=== PATIENT | male | born 1970 | race Caucasian/White ===

== ENCOUNTER 2016-12-20 00:44 | Inpatient (IN) | payer OTHER ==
[~2016-12-20] VITALS: Ht 168.9 cm; Wt 77.9 kg
[2016-12-20] VITALS (9 sets, daily range): BP systolic 108–149; BP diastolic 68–88; PULSE 95–114; TEMP 36.7–37.4; O2SAT 92–98; Ht 168.9 cm; Wt 77.9 kg
[~2016-12-20 00:44] MED LIST: ATOR-54 PO; CALC500C3 PO; CARB100C2 PO; CARB200T3 PO; DIPH25CA37 PO; FOLI1TAB7 PO; LEVO175T PO; LISI-461 PO; MESA0.37 PO; MRC50 PO; MULT-513 PO; OMEG10007 PO; PANT1TAB48 PO; QUET200T2 PO; SERT1TAB68 PO; SRQ/200 PO; WLLSR100 PO
[2016-12-20] MEDS ORDERED: ONDANSETRON INJ 2 MG/ML 2 ML VIAL IV STA (01:00)
[2016-12-20] MEDS ORDERED: HYDROmorphone INJ 1 MG/ML SYR IV STA (01:00)
[2016-12-20] MEDS ORDERED: SODIUM CHLORIDE 0.9% 1000ML 1,000 ML IV STA (01:00)
--- NOTE | 2016-12-20 01:30 | EMERGENCY ROOM VISIT NOTE ---
History Report prepared by Joy: Asmita Mcelroy Under the Supervision of: Dr. Lana Buchanan M.D. First contact with patient: 01:00 Chief Complaint: KIDNEY STONE Stated Complaint: SUDDEN ONSET KIDNEY PAIN W N/V History of Present Illness The patient is a 46 year old male who presents to the Emergency Room via to be evaluated for worsening right sided flank pain with sudden onset 1.5 hours ago. He rates his pain as a 9/10. The patient has been vomiting. He denies that the pain radiates down to his groin, blood in his urine. Source of History: patient Onset: 1.5 hours ago Position: other (right flank pain) Symptom Intensity: 9/10 Timing: worsening Associated Symptoms: + vomiting Note: He denies that the pain radiates down to his groin, blood in his urine. Review of Systems See HPI for pertinent positives & negatives. A total of 10 systems reviewed and were otherwise negative. Past Medical & Surgical Medical Problems: (1) Crohn's disease (2) Hypertension (3) Hypothyroidism (4) Kidney stones (5) Major depression (6) Sepsis Surgical Problems: (1) Hernia repair (2) Vasectomy Family History No significant family history Social History Smoking Status: Former Smoker Alcohol Use: none Drug Use: none Marital Status: Housing Status: lives alone Occupation Status: employed Current/Historical Medications Scheduled Atorvastatin (Lipitor), 20 MG PO DAILY Bupropion HCl (Bupropion HCl Sr), 200 MG PO QAM Calcium Carbonate (Tums), 750 MG PO AMPM Carbamazepine (Tegretol), 200 MG PO QAM Folic Acid (Folvite), 1 MG PO DAILY Glucosamine Sulfate (Glucosamine), 1,000 MG PO BID Levofloxacin (Levaquin), 500 MG PO DAILY Levothyroxine Sodium (Synthroid), 175 MCG PO DAILY Lisinopril (Zestril), 10 MG PO DAILY Mercaptopurine (Mercaptopurine), 50 MG PO DAILY Mesalamine (Apriso), 0.75 GM PO BID Multivitamins/Minerals (Mvi With Minerals), 0.5 TAB PO BID Pantoprazole (Protonix), 40 MG PO DAILY Quetiapine Fumarate (Seroquel), 200 MG PO HS Quetiapine Fumarate (Quetiapine Fumarate), 400 MG PO HS Sertraline Hcl (Zoloft), 100 MG PO DAILY Scheduled PRN Cyclobenzaprine Hcl (Flexeril), 10 MG PO TID PRN for SPASMS Dicyclomine Hcl (Bentyl), 10 MG PO TID PRN for UNDECIDED Meloxicam (Mobic), 15 MG PO DAILY PRN for Pain Ondasetron Odt (Zofran Odt), 4 MG SL Q6H PRN for Nausea or Vomiting Prochlorperazine Maleate (Compazine), 10 MG PO Q6H PRN for Nausea or Vomiting Allergies Coded Allergies: No Known Allergies (Verified , 08/21/15) Physical Exam Vital Signs Date Time Temp Pulse Resp B/P Pulse Ox O2 Delivery O2 Flow Rate FiO2 12/20/16 04:36 37.6 118 16 134/75 94 Room Air 12/20/16 03:50 38.6 126 24 129/68 92 Room Air 12/20/16 02:20 39.2 121 18 163/97 92 Room Air 12/20/16 01:59 120 22 156/96 94 Room Air 12/20/16 01:45 125 12/20/16 00:55 37.9 122 24 106/65 95 Physical Exam Vital signs reviewed. General: Well-appearing male, in significant discomfort. HEENT: No scleral icterus, PERRLA, neck supple. Atraumatic. Cardiovascular: Regular rate and rhythm, no extra sounds. Pulmonary: Clear to auscultation bilaterally, normal work of breathing. Abdomen: Soft, nondistended, positive bowel sounds. Musculoskeletal: Atraumatic, no peripheral edema. Mild right CVA tenderness. Neurologic: Patient awake alert and oriented x 3 Skin: Warm, dry, no rash Medical Decision & Procedures ER Provider Diagnostic Interpretation: CT results as stated below per my review and radiologist interpretation. X-ray results as stated below per interpretation by me. CT Abdomen and Pelvis: Compared to 05/01/16 Interval development of lower lobe pneumonia, more pronounced on the right. No urolithiasis/ hydronephrosis. Hepatosplenomegaly. Normal appendix. No bowel obstruction or perforation. Radiologist: Isaiah Medrano MD. Chest X-Ray: Right lower lung field infiltrate, no failure, no pneumothorax. Laboratory Results Test 12/20/16 01:30 12/20/16 02:16 12/20/16 02:30 12/20/16 02:52 Activated Partial Thromboplast Time 27.0 SECONDS (21.0-31.0) Partial Thromboplastin Ratio 1.0 Magnesium Level 2.0 mg/dl (1.8-2.4) Total Bilirubin 0.2 mg/dl (0.2-1) Direct Bilirubin < 0.1 mg/dl (0-0.2) Aspartate Amino Transf (AST/SGOT) 21 U/L (15-37) Alanine Aminotransferase (ALT/SGPT) 32 U/L (12-78) Alkaline Phosphatase 111 U/L (45-117) Total Protein 8.4 gm/dl (6.4-8.2) Albumin 4.1 gm/dl (3.4-5.0) Lipase 182 U/L (73-393) Thyroid Stimulating Hormone (TSH) 1.800 uIu/ml (0.300-4.500) Urine Color YELLOW Urine Appearance CLEAR (CLEAR) Urine pH 7.0 (4.5-7.5) Urine Specific [place] 1.022 (1.000-1.030) Urine Protein NEG (NEG) Urine Glucose (UA) NEG (NEG) Urine Ketones NEG (NEG) Urine Occult Blood NEG (NEG) Urine Nitrite NEG (NEG) Urine Bilirubin NEG (NEG) Urine Urobilinogen NEG (NEG) Urine Leukocyte Esterase NEG (NEG) Influenza Type A (RT-PCR) Neg for Influ A (NEG) Influenza Type A Antigen Neg for Influ A (NEG) Influenza Type B Antigen Neg for Influ B (NEG) Influenza Type B (RT-PCR) Neg for Influ B (NEG) Bedside Lactic Acid Venous 1.71 mmol/L (0.90-1.70) Laboratory results per my review. Medications Administered Medications (Trade) Dose Ordered Sig/Alia Route Start Time Stop Time Status Last Admin Dose Admin Hydromorphone HCl (Dilaudid Inj) 1 mg NOW STAT IV 12/20/16 01:00 12/20/16 01:02 DC 12/20/16 01:26 1 MG Ondansetron HCl 4 mg 4 mg NOW STAT IV 12/20/16 01:00 12/20/16 01:02 DC 12/20/16 01:26 4 MG Sodium Chloride (Nss 1000ml) 1,000 ml @ 999 mls/hr Q1H1M STAT IV 12/20/16 01:00 12/20/16 02:00 DC 12/20/16 01:26 999 MLS/HR Levofloxacin (Levaquin / D5W) 750 mg NOW STAT IV 12/20/16 02:28 12/20/16 02:29 DC 12/20/16 03:00 750 MG Acetaminophen (Tylenol Tab) 1,000 mg NOW STAT PO 12/20/16 02:28 12/20/16 02:29 DC 12/20/16 02:34 1,000 MG Ketorolac Tromethamine 30 mg 30 mg NOW STAT IV 12/20/16 03:29 12/20/16 03:30 DC 12/20/16 03:49 30 MG Sodium Chloride (Nss 1000ml) 1,000 ml @ 500 mls/hr Q2H STAT IV 12/20/16 04:31 12/20/16 06:30 DC 12/20/16 05:26 500 MLS/HR ED Course 0114: Past medical records reviewed. The patient was evaluated in room B9. A complete history and physical examination was performed. 0100: Sodium Chloride 1000 ml @ 999 mls/hr IV, Zofran 4 mg IV, Dilaudid 1 mg IV 0228: Tylenol Tab 1000 mg PO, Levofloxacin 750 mg IV 0327: I updated the patient on his imaging results. On reevaluation, the patient is still febrile and tachycardic. 0339: Toradol 30 mg IV 0429: I discussed the case with Dr. Candelaria ([facility]); he will further evaluate the patient. 0454: I reevaluated the patient; he is doing well but remains tachycardic. Dr. Candelaria is in the room with the patient. Medical Decision The patient is a 46 year old male who presents to the ED with complaints of right flank pain. Differentials include: Differential diagnosis: Etiologies such as renal colic, appendicitis, diverticulitis, mesenteric ischemia, aortic pathology, infections, inflammatory bowel disease, PUD, biliary pathology, UTI, as well as others were entertained. This pt was evaluated and appeared to be in significant discomfort. IV access was obtained and lab work was drawn. Pt was placed on the director of cardiac rehabilitation. Pt is found to have a leukocytosis, tachycardia and fever. CT sbd/pelvis reveals no evidence of ureteral stone. There are bilateral lower lung field infiltrates. Blood cultures were drawn. Pt was hydrated with NSS, IV dilaudid and zofran. He was given IV levaquin 750 mg, oral tylenol and IV toradol. Due to abnormal VS, pt was discussed with the hospitalist service for further management. Pt is aware of the plan and agrees. Consults Time Called: [phone] Consulting Physician: Dr. Candelaria ([facility]) Returned Call: [phone] I discussed the case with Dr. Candelaria ([facility]); he will further evaluate the patient. Impression Primary Impression: SIRS (systemic inflammatory response syndrome) Additional Impression: Pneumonia Scribe Attestation The scribe's documentation has been prepared under my direction and personally reviewed by me in its entirety. I confirm that the note above accurately reflects all work, treatment, procedures, and medical decision making performed by me. Departure Information Dispostion Being Evaluated By Hospitalist Prescriptions Levofloxacin (Levaquin) 500 Mg Tab 500 MG PO DAILY for 7 Days, #7 Prov: Louie Alvarado MD 12/22/16 Referrals Dennis Delgado III, M.D. (PCP) Patient Instructions My [facility] Problem Qualifiers Additional Impression: Pneumonia Pneumonia type: due to unspecified organism Laterality: bilateral Lung location: lower lobe of lung Qualified Codes: J18.9 - Pneumonia, unspecified organism
[2016-12-20 01:49] LABS: BASO % 0.2 %; BASO ABS # 0.02 K/uL (0-0.2); COMPLETE YES; EOS % 0.6 %; HEMATOCRIT 40.9 % (42-52); IG% 0.6 %; LYMPH % 6.9 %; LYMPH ABS # 0.84 K/uL (1.2-3.4); MEAN CELL VOLUME 94.2 fL (80-100); MEAN CORPUSCULAR HEMOGLOBIN 31.3 pg (25-34); MEAN CORPUSCULAR HGB CONC 33.3 g/dl (32-36); MEAN PLATELET VOLUME 8.8 fL (7.4-10.4); NEUT % 86.7 %; PLATELET COUNT 252 K/uL (130-400); RED BLOOD COUNT 4.34 M/uL (4.7-6.1); WHITE BLOOD COUNT 12.14 K/uL (4.8-10.8)
[2016-12-20] MEDS ORDERED: MELO15TA4 PO (02:00)
[2016-12-20] MEDS ORDERED: PROC1TAB5 PO (02:02)
[2016-12-20] MEDS ORDERED: DICY10CA55 PO (02:03)
[2016-12-20] MEDS ORDERED: CYCL10TA6 PO (02:04)
[2016-12-20] MEDS ORDERED: GLUC10007 PO (02:05)
[2016-12-20] MEDS ORDERED: ONDA4TAB10 SL (02:07)
[2016-12-20 02:10] LABS: ALT/SGPT 32 U/L (12-78); AST/SGOT 21 U/L (15-37); BLOOD UREA NITROGEN 11 mg/dl (7-18); BUN/CREATININE RATIO 11.3 (10-20); CALCIUM 8.8 mg/dl (8.5-10.1); CARBON DIOXIDE 34 mmol/L (21-32); CHLORIDE 101 mmol/L (98-107); GLUCOSE 112 mg/dl (70-99); POTASSIUM 3.9 mmol/L (3.5-5.1); SODIUM 141 mmol/L (136-145)
[2016-12-20 02:13] LABS: ALKALINE PHOSPHATASE 111 U/L (45-117)
[2016-12-20] MEDS ORDERED: LEVAQUIN 750MG / 150ML D5W IV STA (02:28)
[2016-12-20] MEDS ORDERED: ACETAMINOPHEN 500 MG TAB PO STA (02:28)
[2016-12-20 02:42] LABS: URINE APPEARANCE CLEAR (CLEAR); URINE BILIRUBIN NEG (NEG); URINE COLOR YELLOW; URINE NITRITE NEG (NEG); URINE SPECIFIC GRAVITY 1.022 (1.000-1.030); UROBILINOGEN NEG (NEG); ZZUR CULT IF INDIC CLEAN CATCH NO
[2016-12-20 02:47] LABS: MANUAL MICROSCOPIC REQUIRED? NO; REVIEW REQ? NO
[2016-12-20] MEDS ORDERED: KETOROLAC TROMETHAMINE 30 MG/ML VIAL IV STA (03:29)
[2016-12-20] MEDS: SODIUM CHLORIDE 0.9% 1000ML 1,000 ML IV STA ×2 (04:31→05:26)
[2016-12-20 05:10] LABS: INFLUENZA A PCR Neg for Influ A (NEG); INFLUENZA B PCR Neg for Influ B (NEG)
[2016-12-20] MEDS ORDERED: KETOROLAC TROMETHAMINE 30 MG/ML VIAL IV PRN (05:15)
[2016-12-20] MEDS ORDERED: LORAZEPAM 2 MG/ML 1 ML VIAL IV PRN (05:15)
[2016-12-20] MEDS ORDERED: MoRPHine SULFATE 4 MG/ML 1 ML CARP\\VIAL IV PRN (05:15)
[2016-12-20] MEDS ORDERED: ONDANSETRON INJ 2 MG/ML 2 ML VIAL IV PRN (05:15)
[2016-12-20] MEDS ORDERED: ACETAMINOPHEN 325 MG TAB PO PRN (05:15)
[2016-12-20] MEDS ORDERED: PROMETHAZINE HCL INJ 12.5 MG in SODIUM CHLORIDE 0.9% 50ML 50 ML IV PRN (05:15)
[2016-12-20] MEDS ORDERED: NITROGLYCERIN 0.4 MG SL PER TAB CHARGE SL PRN (05:15)
[2016-12-20] MEDS ORDERED: LEVOFLOXACIN CONSULT ACTIVE PRN (06:00)
[2016-12-20] MEDS ORDERED: SRQ400 PO (06:05)
--- NOTE | 2016-12-20 06:09 | DIAGNOSTIC IMAGING REPORT ---
ABDOMEN AND PELVIS CT WITHOUT CONTRAST CT DOSE: 661.40 mGy.cm HISTORY: Pain right flank pain, stone TECHNIQUE: Multiaxial CT images of the abdomen and pelvis were performed without contrast. COMPARISON STUDY: 05/01/2016 FINDINGS: Right lower lobe infiltrate. Minimal dependent atelectasis left base. Moderate hepatosplenomegaly. Kidneys negative for calcification or hydronephrosis. Bowel pattern is nonobstructive. Scattered colonic diverticuli. No evidence for diverticulitis. Bladder is midline. No free fluid within the pelvic cul-de-sac. IMPRESSION: Right lower lobe infiltrate. No acute process of the abdomen or pelvis. Electronically signed by: Brayden Rodriguez M.D. 12/20/2016 6:08 AM Dictated Date/Time: 12/20/2016 6:05 AM
[2016-12-20] MEDS ORDERED: LEVALBUTEROL/IPRATROPIUM NEB INH PRN (06:15)
--- NOTE | 2016-12-20 06:28 | DIAGNOSTIC IMAGING REPORT ---
CHEST ONE VIEW PORTABLE CLINICAL HISTORY: PNA dyspnea COMPARISON STUDY: 05/14/2016 FINDINGS: Small bibasilar parenchymal infiltrates. Mid and upper lungs are clear. Diaphragms are smooth. IMPRESSION: Small bibasilar parenchymal infiltrates. Electronically signed by: Brayden Rodriguez M.D. 12/20/2016 6:26 AM Dictated Date/Time: 12/20/2016 6:26 AM
[2016-12-20] MEDS ORDERED: IPRATROPIUM BROMIDE NEB SOLN 0.02% 2.5 ML VIAL INH PRN (06:45)
[2016-12-20] MEDS ORDERED: LEVALBUTEROL 1.25MG/0.5ML NEB INH PRN (06:45)
[2016-12-20] MEDS ORDERED: SODIUM CHLORIDE 0.45% 1000ML 1,000 ML IV ONE (07:00)
--- NOTE | 2016-12-20 07:50 | HISTORY & PHYSICAL EXAMINATION ---
DATE OF ADMISSION: 12/20/2016 PATIENT'S PRIMARY CARE DOCTOR: Dr. Delgado. HX obtained from px and records. HISTORY OF PRESENT ILLNESS: Medical history significant for hypertension, IBD on Mercaptopurine, past tobacco abuse, ELIE as per records, hypothyroidism, mood disorder. Recent confinement at the [facility] last 2010 for major depression. A few days history of cough symptoms, junky; pleuritic R flank pain, some fever, chills. Sick contacts. Denies aspiration. At the Emergency Room, CAT scan showed interval development of lower lobe pneumonia, more pronounced on the right, hepatosplenomegaly. Patient received Levaquin in the ER for sepsis. MEDICAL HISTORY: seasonal flu vaccine 2016. No previous pneumococcal vaccines in the past. SURGERIES: Inguinal hernia, dental surgery, nevi removal, vasectomy. HOME MEDICATIONS: Folvite, glucosamine, Synthroid, Zestril, Mobic, mesalamine, multivitamin, Zofran, Protonix, Compazine, Seroquel, and Zoloft. ALLERGIES: No known drug allergies. FAMILY HISTORY: Hypertension. PERSONAL AND SOCIAL HISTORY: Nonsmoker, past tobacco abuse. No chronic intake of alcoholic beverages. 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. REVIEW OF SYSTEMS: As per HPI. All other ROS negative. PHYSICAL EXAMINATION: VITAL SIGNS: Blood pressure was noted to be 106/65, pulse rate 120, RR 24, temperature 38, sats 98 on room air. GENERAL: Noted to be uncomfortable, no respiratory distress, frequent blinking. Looks younger for stated age. HEENT: [place] palpebral conjunctivae. Dry mucosa. NECK: No JVD. Supple. CHEST: Clear. LUNGS: Clear to auscultation. HEART: Tachycardic. ABDOMEN: Soft BACK :tenderness in the right flank. EXTREMITIES: No edema, no tenderness. NEUROLOGIC: No gross focality. IMAGING DATA: CT abdomen and pelvis, as above. Chest x-ray showed bibasilar pneumonia LABORATORY DATA: WBC 12, H 13.6 platelets 252 Troponin normal. EKG pending. ASSESSMENT: 1. Sepsis secondary to community acquired pneumonia bibasilar pneumonia with pleuritic involvement. immunocompromised px hx IBD on Mercaptopurine 2. Hypertension, stable. 3. Mood disorder, stable on medications. 4. Past tobacco abuse. PLAN: PCU. Cultures. Levaquin IVF Pneumococcal vaccine prior to discharge. Analgesia. hold Mercaptopurine for now DVT prophylaxis, Lovenox subQ. Full code. MTDD
[2016-12-20] MEDS: APRISO~ORDER AWAITING ACTION SCH ×2 (08:00→16:00)
--- NOTE | 2016-12-20 08:31 | Progress Note ---
Internal Med Progress Note Date of Service: Dec 20, 2016. Provider Documentation: SUBJECTIVE: Patient is seen and examined at bedside. States having right sided pleuritic pain which is worse with coughing. Reports cough with brownish expectoration. Denies any SOB, wheezing, abd pain. OBJECTIVE: Vital Signs-as noted below Physical Exam: General Appearance:Moderately built and nourished, no apparent distress Head: normocephalic, Atraumatic Eyes: normal inspection, EOMI, PERRLA Neck: supple, no JVD, Trachea midline Respiratory/Chest: Normal breath sounds, CTA, No accessory muscle use Cardiovascular: S1, S2, Tachycardia, No murmur Abdomen/GI:Soft, Non tender, Bowel sounds present Extremities/Musculoskelatal:normal inspection, no edema Neurologic/Psych:AAOX3, grossly no focal neurological deficits, +depression, mood disorder Skin: normal color, warm Lab data as noted below. 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 H/O CROHN'S DISEASE Stable Continue home meds Patient to bring meds from home H/O SLEEP APNEA Stable HYPOTHYROIDISM TSH:wnl Continue levothyroxine DVT PX Lovenox SQ CODE STATUS: full code DISPOSITION: Continue to monitor in Tele Vital Signs: Date Time Temp Pulse Resp B/P Pulse Ox O2 Delivery O2 Flow Rate FiO2 12/20/16 07:39 37.1 102 16 108/69 93 Room Air 12/20/16 05:38 37.0 114 16 132/84 92 Room Air 12/20/16 05:20 113 24 94 12/20/16 05:04 115 12/20/16 04:36 37.6 118 16 134/75 94 Room Air 12/20/16 03:50 38.6 126 24 129/68 92 Room Air 12/20/16 02:20 39.2 121 18 163/97 92 Room Air 12/20/16 01:59 120 22 156/96 94 Room Air 12/20/16 01:45 125 12/20/16 00:55 37.9 122 24 106/65 95 Lab Results: Results Past 24 Hours Test 12/20/16 01:30 12/20/16 02:16 12/20/16 02:30 12/20/16 02:52 Range/Units White Blood Count 12.14 4.8-10.8 K/uL Red Blood Count 4.34 4.7-6.1 M/uL Hemoglobin 13.6 14.0-18.0 g/dL Hematocrit 40.9 42-52 % Mean Corpuscular Volume 94.2 80-100 fL Mean Corpuscular Hemoglobin 31.3 25-34 pg Mean Corpuscular Hemoglobin Concent 33.3 32-36 g/dl Platelet Count 252 130-400 K/uL Mean Platelet Volume 8.8 7.4-10.4 fL Neutrophils (%) (Auto) 86.7 % Lymphocytes (%) (Auto) 6.9 % Monocytes (%) (Auto) 5.0 % Eosinophils (%) (Auto) 0.6 % Basophils (%) (Auto) 0.2 % Neutrophils # (Auto) 10.53 1.4-6.5 K/uL Lymphocytes # (Auto) 0.84 1.2-3.4 K/uL Monocytes # (Auto) 0.61 0.11-0.59 K/uL Eosinophils # (Auto) 0.07 0-0.5 K/uL Basophils # (Auto) 0.02 0-0.2 K/uL RDW Standard Deviation 54.8 36.4-46.3 fL RDW Coefficient of Variation 15.8 11.5-14.5 % Immature Granulocyte % (Auto) 0.6 % Immature Granulocyte # (Auto) 0.07 0.00-0.02 K/uL Activated Partial Thromboplast Time 27.0 21.0-31.0 SECONDS Partial Thromboplastin Ratio 1.0 Sodium Level 141 136-145 mmol/L Potassium Level 3.9 3.5-5.1 mmol/L Chloride Level 101 98-107 mmol/L Carbon Dioxide Level 34 21-32 mmol/L Anion Gap 6.0 3-11 mmol/L Blood Urea Nitrogen 11 7-18 mg/dl Creatinine 1.00 0.60-1.40 mg/dl Est Creatinine Clear Calc Drug Dose 83.0 ml/min Estimated GFR () 102.7 Estimated GFR (Non- 88.6 BUN/Creatinine Ratio 11.3 10-20 Random Glucose 112 70-99 mg/dl Calcium Level 8.8 8.5-10.1 mg/dl Magnesium Level 2.0 1.8-2.4 mg/dl Total Bilirubin 0.2 0.2-1 mg/dl Direct Bilirubin < 0.1 0-0.2 mg/dl Aspartate Amino Transf (AST/SGOT) 21 15-37 U/L Alanine Aminotransferase (ALT/SGPT) 32 12-78 U/L Alkaline Phosphatase 111 45-117 U/L Troponin I < 0.015 0-0.045 ng/ml Total Protein 8.4 6.4-8.2 gm/dl Albumin 4.1 3.4-5.0 gm/dl Lipase 182 73-393 U/L Thyroid Stimulating Hormone (TSH) 1.800 0.300-4.500 uIu/ml Urine Color YELLOW Urine Appearance CLEAR CLEAR Urine pH 7.0 4.5-7.5 Urine Specific [place] 1.022 1.000-1.030 Urine Protein NEG NEG Urine Glucose (UA) NEG NEG Urine Ketones NEG NEG Urine Occult Blood NEG NEG Urine Nitrite NEG NEG Urine Bilirubin NEG NEG Urine Urobilinogen NEG NEG Urine Leukocyte Esterase NEG NEG Influenza Type A (RT-PCR) Neg for Influ A NEG Influenza Type A Antigen Neg for Influ A NEG Influenza Type B Antigen Neg for Influ B NEG Influenza Type B (RT-PCR) Neg for Influ B NEG Bedside Lactic Acid Venous 1.71 0.90-1.70 mmol/L Test 12/20/16 05:58 Range/Units Lactic Acid Level 0.7 0.4-2.0 mmol/L Carbamazepine (Tegretol) Level 4.2 4-12 mcg/ml Microbiology Results 12/20/16 Blood Culture, Received Pending 12/20/16 Blood Culture, Received Pending
[2016-12-20] MEDS: ENOXAPARIN 40 MG/0.4 ML SYR SC SCH (08:56)
[2016-12-20] MEDS: ATORVASTATIN 20 MG TAB PO SCH (08:57)
[2016-12-20] MEDS: PANTOprazole SOD 40 MG TAB PO SCH (08:58)
[2016-12-20] MEDS: CEROVITE ADV FORMULA TAB PO SCH ×2 (08:58→20:49)
[2016-12-20] MEDS ORDERED: PNEUMOCOCCAL ADMINISTRATION CHARGE ONE (09:00)
[2016-12-20] MEDS ORDERED: PNEUMOCOCCAL POLYSACCHARIDES 25 MCG/0.5 ML VIAL/SYR IM. ONE (09:00)
[2016-12-20] MEDS: LEVOTHYROXINE 175 MCG TAB PO SCH (09:00)
[2016-12-20] MEDS: BuPROPion SR 100 MG TABCR PO SCH (09:01)
[2016-12-20] MEDS: CARBAMAZEPINE 200 MG TAB PO SCH (09:01)
[2016-12-20] MEDS: LISINOPRIL 10 MG TAB PO SCH (09:01)
[2016-12-20] MEDS: SERTRALINE HCL 100 MG TAB PO SCH (09:02)
[2016-12-20] MEDS: MERCAPTOPURINE 50 MG TAB PO SCH (10:21)
[2016-12-20] MEDS: CYCLOBENZAPRINE HCL 10 MG TAB PO PRN ×2 (10:22→19:58)
[2016-12-20] MEDS: IBUPROFEN 200 MG TAB PO PRN ×2 (10:23→19:59)
[2016-12-20] MEDS: MESALAMINE 0.375 GM PO SCH (20:48)
[2016-12-20] MEDS: LEVOFLOXACIN 750 MG TAB PO SCH (20:49)
[2016-12-20] MEDS: QUETIAPINE FUMARATE 300 MG TAB PO SCH (20:49)
[2016-12-20] MEDS ORDERED: QUETIAPINE FUMARATE 200 MG TAB PO SCH (21:00)
[2016-12-21 03:46] VITALS: BP 119/66; PULSE 80; TEMP 36.6; O2SAT 97
[2016-12-21 05:41] LABS: HEMATOCRIT 36.1 % (42-52); MEAN CORPUSCULAR HEMOGLOBIN 30.8 pg (25-34); MEAN CORPUSCULAR HGB CONC 32.4 g/dl (32-36); MEAN PLATELET VOLUME 8.8 fL (7.4-10.4); PLATELET COUNT 209 K/uL (130-400); WHITE BLOOD COUNT 10.25 K/uL (4.8-10.8)
[2016-12-21 06:11] LABS: BASO % 0.1 %; BASO ABS # 0.01 K/uL (0-0.2); COMPLETE YES; EOS % 1.1 %; IG% 0.3 %; LYMPH % 11.6 %; LYMPH ABS # 1.19 K/uL (1.2-3.4); MONO % 8.3 %; NEUT % 78.6 %
[2016-12-21 06:24] LABS: CALCIUM 8.6 mg/dl (8.5-10.1); CREATININE 0.68 mg/dl (0.60-1.40); POTASSIUM 3.6 mmol/L (3.5-5.1)
[2016-12-21] MEDS: ENOXAPARIN 40 MG/0.4 ML SYR SC SCH ×2 (06:28→20:03)
[2016-12-21 07:21] VITALS: BP 105/61; PULSE 82; TEMP 36.7; O2SAT 97
[2016-12-21] MEDS: CEROVITE ADV FORMULA TAB PO SCH ×2 (08:05→20:03)
[2016-12-21] MEDS: LISINOPRIL 10 MG TAB PO SCH (08:05)
[2016-12-21] MEDS: CARBAMAZEPINE 200 MG TAB PO SCH (08:06)
[2016-12-21] MEDS: PANTOprazole SOD 40 MG TAB PO SCH (08:06)
[2016-12-21] MEDS: SERTRALINE HCL 100 MG TAB PO SCH (08:06)
[2016-12-21] MEDS: BuPROPion SR 100 MG TABCR PO SCH (08:06)
[2016-12-21] MEDS: MESALAMINE 0.375 GM PO SCH ×2 (08:07→20:02)
[2016-12-21] MEDS: ATORVASTATIN 20 MG TAB PO SCH (08:07)
[2016-12-21] MEDS: MERCAPTOPURINE 50 MG TAB PO SCH (08:08)
[2016-12-21] MEDS: LEVOTHYROXINE 175 MCG TAB PO SCH (10:04)
[2016-12-21 11:21] VITALS: BP 114/66; PULSE 92; TEMP 36.8; O2SAT 96
--- NOTE | 2016-12-21 12:49 | Progress Note ---
Internal Med Progress Note Date of Service: Dec 21, 2016. Provider Documentation: SUBJECTIVE: Patient is seen and examined at bedside. Cough with brownish expectoration is improved. Had transient right sided pleuritic pain this morning. Denies any SOB , wheezing, abd pain. Afebrile today OBJECTIVE: Vital Signs-as noted below Physical Exam: General Appearance:Moderately built and nourished, no apparent distress Head: normocephalic, Atraumatic Eyes: normal inspection, EOMI, PERRLA Neck: supple, no JVD, Trachea midline Respiratory/Chest: Normal breath sounds, CTA, No accessory muscle use Cardiovascular: S1, S2, Tachycardia, No murmur Abdomen/GI:Soft, Non tender, Bowel sounds present Extremities/Musculoskelatal:normal inspection, no edema Neurologic/Psych:AAOX3, grossly no focal neurological deficits, +depression, mood disorder Skin: normal color, warm Lab data as noted below. 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 H/O CROHN'S DISEASE Stable Continue home meds Patient to bring meds from home H/O SLEEP APNEA Stable HYPOTHYROIDISM TSH:wnl Continue levothyroxine DVT PX Lovenox SQ CODE STATUS: full code DISPOSITION: Transfer to med/surg Vital Signs: Date Time Temp Pulse Resp B/P Pulse Ox O2 Delivery O2 Flow Rate FiO2 12/21/16 11:21 36.8 92 18 114/66 96 Room Air 12/21/16 08:00 Room Air 12/21/16 07:21 36.7 82 18 105/61 97 Room Air 12/21/16 04:00 Room Air 12/21/16 03:46 36.6 80 20 119/66 97 Room Air 12/20/16 23:59 Room Air 12/20/16 23:40 37.3 96 17 123/68 95 Room Air 12/20/16 20:25 36.8 95 20 149/88 98 Room Air 12/20/16 20:00 Room Air 12/20/16 16:15 93 Room Air 12/20/16 16:13 37.4 98 18 130/72 93 Room Air 12/20/16 15:50 37.0 98 20 121/76 93 Room Air Lab Results: Results Past 24 Hours Test 12/20/16 16:20 12/20/16 17:40 12/20/16 22:20 12/20/16 22:22 Range/Units Creatine Kinase MB Ratio 0-3.0 Creatine Kinase MB 0.6 0.6 0.5-3.6 ng/ml Troponin I < 0.015 < 0.015 0-0.045 ng/ml Test 12/21/16 05:10 Range/Units White Blood Count 10.25 4.8-10.8 K/uL Red Blood Count 3.80 4.7-6.1 M/uL Hemoglobin 11.7 14.0-18.0 g/dL Hematocrit 36.1 42-52 % Mean Corpuscular Volume 95.0 80-100 fL Mean Corpuscular Hemoglobin 30.8 25-34 pg Mean Corpuscular Hemoglobin Concent 32.4 32-36 g/dl Platelet Count 209 130-400 K/uL Mean Platelet Volume 8.8 7.4-10.4 fL Neutrophils (%) (Auto) 78.6 % Lymphocytes (%) (Auto) 11.6 % Monocytes (%) (Auto) 8.3 % Eosinophils (%) (Auto) 1.1 % Basophils (%) (Auto) 0.1 % Neutrophils # (Auto) 8.06 1.4-6.5 K/uL Lymphocytes # (Auto) 1.19 1.2-3.4 K/uL Monocytes # (Auto) 0.85 0.11-0.59 K/uL Eosinophils # (Auto) 0.11 0-0.5 K/uL Basophils # (Auto) 0.01 0-0.2 K/uL RDW Standard Deviation 56.9 36.4-46.3 fL RDW Coefficient of Variation 16.3 11.5-14.5 % Immature Granulocyte % (Auto) 0.3 % Immature Granulocyte # (Auto) 0.03 0.00-0.02 K/uL Red Blood Cell Morphology Unremarkable Sodium Level 145 136-145 mmol/L Potassium Level 3.6 3.5-5.1 mmol/L Chloride Level 109 98-107 mmol/L Carbon Dioxide Level 27 21-32 mmol/L Anion Gap 9.0 3-11 mmol/L Blood Urea Nitrogen 8 7-18 mg/dl Creatinine 0.68 0.60-1.40 mg/dl Est Creatinine Clear Calc Drug Dose 122.0 ml/min Estimated GFR () 130.9 Estimated GFR (Non- 112.9 BUN/Creatinine Ratio 12.0 10-20 Random Glucose 101 70-99 mg/dl Calcium Level 8.6 8.5-10.1 mg/dl
[2016-12-21 13:45] VITALS: O2SAT 96
[2016-12-21 15:34] VITALS: BP 130/87; PULSE 89; TEMP 36.9; O2SAT 97
[2016-12-21] MEDS: LEVOFLOXACIN 750 MG TAB PO SCH (20:02)
[2016-12-21] MEDS: QUETIAPINE FUMARATE 300 MG TAB PO SCH (20:03)
[2016-12-21 23:07] VITALS: BP 134/85; PULSE 83; TEMP 36.5; O2SAT 97
[2016-12-22] MEDS ORDERED: LEVOTHYROXINE 175 MCG TAB PO SCH (06:00)
[2016-12-22 07:07] LABS: BUN/CREATININE RATIO 10.5 (10-20); CALCIUM 9.4 mg/dl (8.5-10.1); CREATININE 0.77 mg/dl (0.60-1.40); POTASSIUM 3.8 mmol/L (3.5-5.1)
[2016-12-22 07:25] VITALS: BP 150/99; PULSE 86; TEMP 36.7; O2SAT 98
--- NOTE | 2016-12-22 08:18 | Progress Note ---
Internal Med Progress Note Date of Service: Dec 22, 2016. Provider Documentation: SUBJECTIVE: Patient is seen and examined at bedside. Feels much better. Still has some productive cough which is improving. Afebrile. Right sided pleuritic pain resolved. Denies any SOB, wheezing, abd pain. OBJECTIVE: Vital Signs-as noted below Physical Exam: General Appearance:Moderately built and nourished, no apparent distress Head: normocephalic, Atraumatic Eyes: normal inspection, EOMI, PERRLA Neck: supple, no JVD, Trachea midline Respiratory/Chest: Normal breath sounds, CTA, No accessory muscle use Cardiovascular: S1, S2, No murmur Abdomen/GI:Soft, Non tender, Bowel sounds present Extremities/Musculoskelatal:normal inspection, no edema Neurologic/Psych:AAOX3, grossly no focal neurological deficits, +depression, mood disorder Skin: normal color, warm Lab data as noted below. ASSESSMENT & PLAN: SEPSIS: Secondary to CAP- likely gram negative Continue monitoring in Tele Continue Levaquin: Bruce to DC on 500mg for 7 more days. 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 Follow up with on 12/28/16 at 9:20AM Vital Signs: Date Time Temp Pulse Resp B/P Pulse Ox O2 Delivery O2 Flow Rate FiO2 12/22/16 08:50 Room Air 12/22/16 07:25 36.7 86 18 150/99 98 12/22/16 00:00 Room Air 12/21/16 23:07 36.5 83 18 134/85 97 Room Air 12/21/16 20:00 Room Air 12/21/16 16:00 Room Air 12/21/16 15:34 36.9 89 20 130/87 97 Room Air 12/21/16 13:45 96 Room Air 12/21/16 12:00 Room Air 12/21/16 11:21 36.8 92 18 114/66 96 Room Air Lab Results: Results Past 24 Hours Test 12/22/16 05:54 Range/Units Sodium Level 143 136-145 mmol/L Potassium Level 3.8 3.5-5.1 mmol/L Chloride Level 108 98-107 mmol/L Carbon Dioxide Level 25 21-32 mmol/L Anion Gap 10.0 3-11 mmol/L Blood Urea Nitrogen 8 7-18 mg/dl Creatinine 0.77 0.60-1.40 mg/dl Est Creatinine Clear Calc Drug Dose 107.8 ml/min Estimated GFR () 124.4 Estimated GFR (Non- 107.3 BUN/Creatinine Ratio 10.5 10-20 Random Glucose 99 70-99 mg/dl Calcium Level 9.4 8.5-10.1 mg/dl
[2016-12-22] MEDS: ATORVASTATIN 20 MG TAB PO SCH (08:36)
[2016-12-22] MEDS: BuPROPion SR 100 MG TABCR PO SCH (08:36)
[2016-12-22] MEDS: CARBAMAZEPINE 200 MG TAB PO SCH (08:37)
[2016-12-22] MEDS: CEROVITE ADV FORMULA TAB PO SCH (08:37)
[2016-12-22] MEDS: PANTOprazole SOD 40 MG TAB PO SCH (08:38)
[2016-12-22] MEDS: LISINOPRIL 10 MG TAB PO SCH (08:38)
[2016-12-22] MEDS: SERTRALINE HCL 100 MG TAB PO SCH (08:39)
[2016-12-22] MEDS: MESALAMINE 0.375 GM PO SCH (08:40)
[2016-12-22] MEDS: MERCAPTOPURINE 50 MG TAB PO SCH (08:41)
[2016-12-22] MEDS ORDERED: LEVO-459 PO (09:42)
--- NOTE | 2016-12-22 09:47 | Discharge Summary ---
Discharge Summary Admission Date: Dec 20, 2016 at 04:38 Discharge Date: Dec 22, 2016 Discharge Disposition: Home Principal Diagnosis: Sepsis, Community acquired pneumonia Procedures: CT ABD: Right lower lobe infiltrate. No acute process of the abdomen or pelvis. CXR: Small bibasilar parenchymal infiltrates. Consultations: None Pending Studies/Follow-Up: Follow up with Dr. Mendosa on 12/28/16 at 9:20 AM Complete the antibiotic course as prescribed Seek immediate medical attention if your symptoms reoccur or worsen Medication Reconciliation New Medications: Levofloxacin (Levaquin) 500 Mg Tab 500 MG PO DAILY for 7 Days, #7 Continued Medications: Atorvastatin (Lipitor) 20 Mg Tab 20 MG PO DAILY, TAB Bupropion HCl (Bupropion HCl Sr) 100 Mg Tabcr 200 MG PO QAM Calcium Carbonate (Tums) 500 Mg Chew 750 MG PO AMPM Carbamazepine (Tegretol) 200 Mg Tab 200 MG PO QAM, TAB Cyclobenzaprine Hcl (Flexeril) 10 Mg Tab 10 MG PO TID PRN for SPASMS, #21 TAB Dicyclomine Hcl (Bentyl) 10 Mg Cap 10 MG PO TID PRN for UNDECIDED, CAP Folic Acid (Folvite) 1 Mg Tab 1 MG PO DAILY, TAB Glucosamine Sulfate (Glucosamine) 1,000 Mg Tab 1000 MG PO BID, TAB Levothyroxine Sodium (Synthroid) 175 Mcg Tab 175 MCG PO DAILY, TAB Lisinopril (Zestril) 10 Mg Tab 10 MG PO DAILY, TAB Meloxicam (Mobic) 15 Mg Tab 15 MG PO DAILY PRN for Pain, TAB Mercaptopurine (Mercaptopurine) 50 Mg Tab 50 MG PO DAILY Mesalamine (Apriso) 0.375 Gm Cap 0.75 GM PO BID Multivitamins/Minerals (Mvi With Minerals) Tab 0.5 TAB PO BID, 0 Refills Ondasetron Odt (Zofran Odt) 4 Mg Tab 4 MG SL Q6H PRN for Nausea or Vomiting, TAB Pantoprazole (Protonix) 40 Mg Tab 40 MG PO DAILY, TAB Prochlorperazine Maleate (Compazine) 10 Mg Tab 10 MG PO Q6H PRN for Nausea or Vomiting, TAB Quetiapine Fumarate (Seroquel) 200 Mg Tab 200 MG PO HS, TAB TAKE ONE 200 MG TABLET ALONG WITH ONE 400 MG TABLET TO EQUAL BEDTIME DOSE OF 600 MG. Quetiapine Fumarate (Quetiapine Fumarate) 400 Mg Tab 400 MG PO HS TAKE ONE 200 MG TABLET ALONG WITH ONE 400 MG TABLET TO EQUAL BEDTIME DOSE OF 600 MG. Sertraline Hcl (Zoloft) 100 Mg Tab 100 MG PO DAILY, TAB Admission Information HPI (per Admitting provider): HISTORY OF PRESENT ILLNESS: Medical history significant for hypertension, IBD on Mercaptopurine, past tobacco abuse, ELIE as per records, hypothyroidism, mood disorder. Recent confinement at the [facility] [place] last 2010 for major depression. A few days history of cough symptoms, junky; pleuritic R flank pain, some fever, chills. Sick contacts. Denies aspiration. At the Emergency Room, CAT scan showed interval development of lower lobe pneumonia, more pronounced on the right, hepatosplenomegaly. Patient received Levaquin in the ER for sepsis. Physical Exam (per Admitting): PHYSICAL EXAMINATION: VITAL SIGNS: Blood pressure was noted to be 106/65, pulse rate 120, RR 24, temperature 38, sats 98 on room air. GENERAL: Noted to be uncomfortable, no respiratory distress, frequent blinking. Looks younger for stated age. HEENT: [place] palpebral conjunctivae. Dry mucosa. NECK: No JVD. Supple. CHEST: Clear. LUNGS: Clear to auscultation. HEART: Tachycardic. ABDOMEN: Soft BACK :tenderness in the right flank. EXTREMITIES: No edema, no tenderness. NEUROLOGIC: No gross focality. Hospital Course SEPSIS: Secondary to CAP- likely gram negative Continue monitoring in Tele Continue Levaquin: Bruce to DC on 500mg for 7 more days. S/P IV Fluids Blood Cultures:No growth to date sputum cultures: pending Leukocytosis resolved Lactate:wnl Nebs PRN Pain control HYPERTENSION Stable Continue home meds MOOD DISORDER Stable Continue Wellbutrin, Seroquel, Zoloft, Tegretol H/O TROCHANTERIC BURSITIS: Continue Flexeril Levels:wnl TOBACCO USE DISORDER [place] to quit smoking H/O CROHN'S DISEASE Stable Continue home meds Patient to bring meds from home H/O SLEEP APNEA Stable HYPOTHYROIDISM TSH:wnl Continue levothyroxine DVT PX Lovenox SQ CODE STATUS: full code DISPOSITION: Plan to discharge home today. Follow up with on 2/27/17 at 9:20AM Total time spent on discharge = 34 minutes This includes examination of the patient, discharge planning, medication reconciliation, and communication with other providers. Discharge Instructions Discharge Instructions Admission Reason for Admission: Sepsis Discharge Discharge Diagnosis / Problem: Sepsis, Community acquired pneumonia Discharge Goals Goal(s): Decrease discomfort, Improve function Activity Recommendations Activity Limitations: resume your previous activity Exercise/Sports Limitations: as tolerated Driving or Machine Use: resume 1 day after discharge . Instructions / Follow-Up Instructions / Follow-Up Follow up with Dr. Mendosa on 12/28/16 at 9:20 AM Complete the antibiotic course as prescribed Seek immediate medical attention if your symptoms reoccur or worsen Current Hospital Diet Patient's current hospital diet: Regular Diet Discharge Diet Recommended Diet: Regular Diet Pending Studies Studies pending at discharge: yes List of pending studies: Sputum culture Work Instructions Additional Instructions: Can return to work on 12/28/16 after follow up with Medical Emergencies . Who to Call and When: Medical Emergencies: If at any time you feel your situation is an emergency, please call 911 immediately. . Non-Emergent Contact Non-Emergency issues call your: Primary Care Provider Call Non-Emergent contact if: you have a fever, your pain is not controlled, your pain is worsening, your pain is unusual for you, you have any medication questions . . "Provider Documentation" section prepared by Louie Alvarado. VTE Core Measure Inpt VTE Proph given/why not?: Enoxaparin (Lovenox)SQ
[2016-12-22 10:04] VITALS: BP 150/99; PULSE 86; TEMP 36.7; O2SAT 98
== END 2016-12-22 16:30 | disposition home or self-care (01) | DRG 871 ==
LOC: ENRESERVTM → ENRESERVDT → C.EDB 00:46 → C.2T 04:38 → EDBEDREQ 04:49 → C.4E 12-21 13:51
PROVIDERS: ADMIT Internal Medicine; ATTEND Internal Medicine
DX: A41.9 Sepsis, unspecified organism (principal); J18.9 Pneumonia, unspecified organism; K50.90 Crohn's disease, unspecified, without complications; E03.9 Hypothyroidism, unspecified; G47.33 Obstructive sleep apnea (adult) (pediatric); F32.9 Major depressive disorder, single episode, unspecified; I10 Essential (primary) hypertension; B96.89 Other specified bacterial agents as the cause of diseases classified elsewhere; D72.829 Elevated white blood cell count, unspecified; M70.60 Trochanteric bursitis, unspecified hip; Z87.891 Personal history of nicotine dependence; Z23 Encounter for immunization; Z87.19 Personal history of other diseases of the digestive system; Z79.1 Long term (current) use of non-steroidal anti-inflammatories (NSAID); Z79.899 Other long term (current) drug therapy

== ENCOUNTER 2017-07-06 09:04 | Emergency (ER) | payer OTHER ==
[~2017-07-06] VITALS: Ht 167.6 cm; Wt 87.1 kg
[~2017-07-06 09:04] MED LIST changes: -CARB100C2 PO; +CYCL10TA6 PO; +DICY10CA55 PO; -DIPH25CA37 PO; +GLUC10007 PO; +LEVO-459 PO; +MELO15TA4 PO; -OMEG10007 PO; +ONDA4TAB10 SL; +PROC1TAB5 PO; -QUET200T2 PO; +SRQ400 PO
[2017-07-06 09:12] VITALS: TEMP 36.5; Ht 167.6 cm; Wt 87.1 kg
[2017-07-06] MEDS ORDERED: SODIUM CHLORIDE 0.9% 1000ML 2,000 ML IV STA (10:01)
[2017-07-06] MEDS ORDERED: ONDANSETRON INJ 2 MG/ML 2 ML VIAL IV STA (10:01)
[2017-07-06 10:12] LABS: BASO ABS # 0.05 K/uL (0-0.2); COMPLETE YES; HEMATOCRIT 45.1 % (42-52); IG% 0.6 %; LYMPH % 21.1 %; LYMPH ABS # 1.08 K/uL (1.2-3.4); MEAN CELL VOLUME 94.4 fL (80-100); MEAN CORPUSCULAR HEMOGLOBIN 30.5 pg (25-34); MEAN CORPUSCULAR HGB CONC 32.4 g/dl (32-36); MEAN PLATELET VOLUME 8.9 fL (7.4-10.4); MONO % 5.3 %; PLATELET COUNT 227 K/uL (130-400); RED BLOOD COUNT 4.78 M/uL (4.7-6.1); WHITE BLOOD COUNT 5.12 K/uL (4.8-10.8)
[2017-07-06] MEDS ORDERED: OPTIRAY 320 IV PRN (10:15)
[2017-07-06] MEDS ORDERED: ATV5X PO (10:16)
[2017-07-06] MEDS ORDERED: MELATAB2 PO (10:16)
[2017-07-06 10:35] LABS: ALT/SGPT 45 U/L (12-78); AST/SGOT 23 U/L (15-37); BLOOD UREA NITROGEN 12 mg/dl (7-18); BUN/CREATININE RATIO 12.8 (10-20); CALCIUM 9.4 mg/dl (8.5-10.1); CARBON DIOXIDE 31 mmol/L (21-32); CHLORIDE 106 mmol/L (98-107); CREATININE 0.92 mg/dl (0.60-1.40); GLUCOSE 102 mg/dl (70-99); POTASSIUM 3.9 mmol/L (3.5-5.1); SODIUM 142 mmol/L (136-145)
[2017-07-06 10:38] LABS: ALKALINE PHOSPHATASE 100 U/L (45-117)
--- NOTE | 2017-07-06 11:31 | DIAGNOSTIC IMAGING REPORT ---
ABDOMEN AND PELVIS CT WITH IV CONTRAST CT DOSE: 903.32 mGycm HISTORY: periumbilical abdominal pain TECHNIQUE: Multiaxial CT images of the abdomen and pelvis were performed following the use of intravenous contrast. A dose lowering technique was utilized adhering to the principles of ALARA. COMPARISON STUDY: Abdomen and pelvis CT 12/10/2016. FINDINGS: There are mild dependent changes seen within the lung bases posteriorly. No pneumoperitoneum. No pneumatosis. Fatty changes within the liver. No hepatic or splenic masses. The adrenal glands, gallbladder, pancreas, and left kidney are unremarkable. A 7 mm hypodense lesion within the right kidney is too small to characterize but favors a cyst. No hydronephrosis. Sigmoid diverticulosis. Submucosal fat deposition within the transverse colon and ascending colon. There is questionable minimal fat stranding at the ascending colon. Normal caliber appendix. No evidence for acute appendicitis. There are 2 punctate appendicolith within the appendix, unchanged. Normal bladder. No pelvic free fluid. No evidence for bowel obstruction. No retroperitoneal lymphadenopathy. IMPRESSION: 1. Interval submucosal fat deposition within the ascending and transverse colon. There may be minimal fat stranding at the ascending colon. Therefore, this raises the possibility of an acute on chronic nonspecific colitis. 2. No evidence for bowel obstruction. 3. No evidence for acute appendicitis. There are 2 stable appendicolith within the appendix. 4. Colonic diverticulosis. 5. Hepatic steatosis. Electronically signed by: Shay Mcgraw M.D. 07/06/2017 11:30 AM Dictated Date/Time: 07/06/2017 11:19 AM
[2017-07-06] MEDS ORDERED: MoRPHine SULFATE 10 MG/ML CARP/VIAL IV STA (11:33)
[2017-07-06] MEDS ORDERED: MoRPHine SULFATE 4 MG/ML 1 ML CARP\\VIAL ONE (11:45)
[2017-07-06] MEDS ORDERED: MoRPHine SULFATE 2 MG/ML CARP ONE (11:45)
[2017-07-06 12:51] LABS: URINE APPEARANCE CLEAR (CLEAR); URINE BILIRUBIN NEG (NEG); URINE COLOR YELLOW; URINE EPITHELIAL CELL AUTO 0-5 /lpf (0-5); URINE NITRITE NEG (NEG); URINE SPECIFIC GRAVITY > 1.045 (1.000-1.030); UROBILINOGEN NEG (NEG); ZZUR CULT IF INDIC CLEAN CATCH NO
[2017-07-06 12:58] LABS: MANUAL MICROSCOPIC REQUIRED? NO; REVIEW REQ? NO
[2017-07-06 13:38] VITALS: BP 150/90; PULSE 78; O2SAT 98
--- NOTE | 2017-07-06 15:56 | EMERGENCY ROOM VISIT NOTE ---
History Report prepared by Joy: Amira Good Under the Supervision of: Dr. Burke Palacios D.O. First contact with patient: 09:36 Chief Complaint: ABDOMINAL PAIN Stated Complaint: DIARRHEA,ABD PAIN Nursing Triage Summary: Patient c/o "really bad stomach and I haven't been able to eat the last couple days and I haven't been able to sleep". Mid abd pain. N/v/d. Symtpoms x a couple days. History of Present Illness The patient is a 47 year old male who presents to the Emergency Room with complaints of worsening mid-abdominal pain for the past two days. He is feeling nauseated and has two episodes of vomiting today. He has had one episode of diarrhea. The patient describes his pain as cramping and rates it as a 7/10 in severity. He started not feeling well about a week ago with cold symptoms. He has a history of Crohn's Disease. He states that this pain feels slightly similar to his Crohn's flare-ups, but also feels different. states that typically when he gets these symptoms he is dehydrated and it often occurs when he is sick with cold symptoms. Pt denies headache, fevers, chest pain, shortness of breath, pain with urination, and melena. He denies any sick contacts. He has a history of inguinal hernia repairs but denies any pervious abdominal surgeries including bowel resections. He denies any recent changes to his medications and has been taking his Crohn's medications as prescribed without missing any doses. Source of History: patient, spouse/significant other Onset: 2 days ago Position: abdomen Symptom Intensity: 7/10 Quality: cramping Timing: worsening Associated Symptoms: + nausea, + vomiting, + diarrhea, No fevers, No headache Review of Systems See HPI for pertinent positives & negatives. A total of 10 systems reviewed and were otherwise negative. Past Medical & Surgical Medical Problems: (1) Crohn's disease (2) Hypertension (3) Hypothyroidism (4) Kidney stones (5) Major depression (6) Sepsis Surgical Problems: (1) Hernia repair (2) Vasectomy Family History No significant family history Social History Smoking Status: Former Smoker Alcohol Use: none Drug Use: none Marital Status: Housing Status: lives alone Occupation Status: employed Current/Historical Medications Scheduled Atorvastatin (Lipitor), 20 MG PO DAILY Bupropion HCl (Bupropion HCl Sr), 200 MG PO QAM Calcium Carbonate (Tums), 750 MG PO AMPM Carbamazepine (Tegretol), 200 MG PO QAM Folic Acid (Folvite), 1 MG PO DAILY Glucosamine Sulfate (Glucosamine), 1,000 MG PO BID Levothyroxine Sodium (Synthroid), 175 MCG PO DAILY Lisinopril (Zestril), 10 MG PO DAILY Lorazepam (Lorazepam), 0.5 MG PO Q8H Melatonin (Melatonin Maximum Strengt), 10 MG PO HS Mercaptopurine (Mercaptopurine), 50 MG PO DAILY Mesalamine (Apriso), 0.75 GM PO BID Multivitamins/Minerals (Mvi With Minerals), 0.5 TAB PO BID Pantoprazole (Protonix), 40 MG PO DAILY Quetiapine Fumarate (Seroquel), 200 MG PO HS Sertraline Hcl (Zoloft), 150 MG PO DAILY Scheduled PRN Cyclobenzaprine Hcl (Flexeril), 10 MG PO TID PRN for SPASMS Dicyclomine Hcl (Bentyl), 10 MG PO TID PRN for UNDECIDED Meloxicam (Mobic), 15 MG PO DAILY PRN for Pain Ondasetron Odt (Zofran Odt), 4 MG SL Q6H PRN for Nausea or Vomiting Allergies Coded Allergies: No Known Allergies (Verified , 07/06/17) Physical Exam Vital Signs Date Time Temp Pulse Resp B/P (MAP) Pulse Ox O2 Delivery O2 Flow Rate FiO2 07/06/17 13:38 78 18 150/90 98 07/06/17 11:31 74 17 130/87 96 07/06/17 10:25 77 19 159/94 93 Room Air 07/06/17 09:12 36.5 61 18 162/107 96 Room Air Physical Exam GENERAL: alert, sitting up in bed, disheveled, well appearing, well nourished, no distress, non-toxic EYE EXAM: normal conjunctiva OROPHARYNX: no exudate, no erythema, lips, buccal mucosa, and tongue normal and mucous membranes are moist NECK: supple, no nuchal rigidity, no adenopathy, non-tender LUNGS: Clear to auscultation. Normal chest wall mechanics HEART: no murmurs, S1 normal and S2 normal ABDOMEN: abdomen soft, non-tender, normo-active bowel sounds, no masses, no rebound or guarding. BACK: Back is symmetrical on inspection and there is no deformity, no midline tenderness, no CVA tenderness. SKIN: no rashes and no bruising UPPER EXTREMITIES: upper extremities are grossly normal. LOWER EXTREMITIES: No pitting edema. NEURO EXAM: Normal sensorium, cranial nerves II-XII grossly intact, normal speech, no gross weakness of arms, no gross weakness of legs. Medical Decision & Procedures ER Provider Diagnostic Interpretation: Radiology results as stated below per my review and the radiologist's interpretation: ABDOMEN AND PELVIS CT WITH IV CONTRAST CT DOSE: 903.32 mGycm HISTORY: periumbilical abdominal pain TECHNIQUE: Multiaxial CT images of the abdomen and pelvis were performed following the use of intravenous contrast. A dose lowering technique was utilized adhering to the principles of ALARA. COMPARISON STUDY: Abdomen and pelvis CT 12/10/2016. FINDINGS: There are mild dependent changes seen within the lung bases posteriorly. No pneumoperitoneum. No pneumatosis. Fatty changes within the liver. No hepatic or splenic masses. The adrenal glands, gallbladder, pancreas, and left kidney are unremarkable. A 7 mm hypodense lesion within the right kidney is too small to characterize but favors a cyst. No hydronephrosis. Sigmoid diverticulosis. Submucosal fat deposition within the transverse colon and ascending colon. There is questionable minimal fat stranding at the ascending colon. Normal caliber appendix. No evidence for acute appendicitis. There are 2 punctate appendicolith within the appendix, unchanged. Normal bladder. No pelvic free fluid. No evidence for bowel obstruction. No retroperitoneal lymphadenopathy. IMPRESSION: 1. Interval submucosal fat deposition within the ascending and transverse colon. There may be minimal fat stranding at the ascending colon. Therefore, this raises the possibility of an acute on chronic nonspecific colitis. 2. No evidence for bowel obstruction. 3. No evidence for acute appendicitis. There are 2 stable appendicolith within the appendix. 4. Colonic diverticulosis. 5. Hepatic steatosis. Electronically signed by: Shay Mcgraw M.D. 07/06/2017 11:30 AM Dictated Date/Time: 07/06/2017 11:19 AM Laboratory Results 07/06/17 09:56 Red Blood Count 4.78, Mean Corpuscular Volume 94.4, Mean Corpuscular Hemoglobin 30.5, Mean Corpuscular Hemoglobin Concent 32.4, Mean Platelet Volume 8.9, Neutrophils (%) (Auto) 70.0, Lymphocytes (%) (Auto) 21.1, Monocytes (%) (Auto) 5.3, Eosinophils (%) (Auto) 2.0, Basophils (%) (Auto) 1.0, Neutrophils # (Auto) 3.59, Lymphocytes # (Auto) 1.08, Monocytes # (Auto) 0.27, Eosinophils # (Auto) 0.10, Basophils # (Auto) 0.05 07/06/17 09:56 Test 07/06/17 09:56 07/06/17 11:49 White Blood Count 5.12 K/uL (4.8-10.8) Red Blood Count 4.78 M/uL (4.7-6.1) Hemoglobin 14.6 g/dL (14.0-18.0) Hematocrit 45.1 % (42-52) Mean Corpuscular Volume 94.4 fL (80-100) Mean Corpuscular Hemoglobin 30.5 pg (25-34) Mean Corpuscular Hemoglobin Concent 32.4 g/dl (32-36) Platelet Count 227 K/uL (130-400) Mean Platelet Volume 8.9 fL (7.4-10.4) Neutrophils (%) (Auto) 70.0 % Lymphocytes (%) (Auto) 21.1 % Monocytes (%) (Auto) 5.3 % Eosinophils (%) (Auto) 2.0 % Basophils (%) (Auto) 1.0 % Neutrophils # (Auto) 3.59 K/uL (1.4-6.5) Lymphocytes # (Auto) 1.08 K/uL (1.2-3.4) Monocytes # (Auto) 0.27 K/uL (0.11-0.59) Eosinophils # (Auto) 0.10 K/uL (0-0.5) Basophils # (Auto) 0.05 K/uL (0-0.2) RDW Standard Deviation 46.7 fL (36.4-46.3) RDW Coefficient of Variation 13.6 % (11.5-14.5) Immature Granulocyte % (Auto) 0.6 % Immature Granulocyte # (Auto) 0.03 K/uL (0.00-0.02) Anion Gap 5.0 mmol/L (3-11) Est Creatinine Clear Calc Drug Dose 100.4 ml/min Estimated GFR () 112.8 Estimated GFR (Non- 97.3 BUN/Creatinine Ratio 12.8 (10-20) Calcium Level 9.4 mg/dl (8.5-10.1) Total Bilirubin 0.3 mg/dl (0.2-1) Direct Bilirubin < 0.1 mg/dl (0-0.2) Aspartate Amino Transf (AST/SGOT) 23 U/L (15-37) Alanine Aminotransferase (ALT/SGPT) 45 U/L (12-78) Alkaline Phosphatase 100 U/L (45-117) Total Protein 7.7 gm/dl (6.4-8.2) Albumin 4.0 gm/dl (3.4-5.0) Lipase 191 U/L (73-393) Urine Color YELLOW Urine Appearance CLEAR (CLEAR) Urine pH 6.0 (4.5-7.5) Urine Specific [place] > 1.045 (1.000-1.030) Urine Protein NEG (NEG) Urine Glucose (UA) NEG (NEG) Urine Ketones NEG (NEG) Urine Occult Blood TRACE (NEG) Urine Nitrite NEG (NEG) Urine Bilirubin NEG (NEG) Urine Urobilinogen NEG (NEG) Urine Leukocyte Esterase NEG (NEG) Urine WBC (Auto) 0 /hpf (0-5) Urine RBC (Auto) 0-4 /hpf (0-4) Urine Hyaline Casts (Auto) 1-5 /lpf (0-5) Urine Epithelial Cells (Auto) 0-5 /lpf (0-5) Urine Bacteria (Auto) NEG (NEG) Laboratory results per my review. Medications Administered Medications (Trade) Dose Ordered Sig/Alia Route Start Time Stop Time Status Last Admin Dose Admin Sodium Chloride 2,000 ml @ 999 mls/hr Q2H1M STAT IV 07/06/17 10:01 07/06/17 12:01 DC 07/06/17 10:24 999 MLS/HR Ondansetron HCl (Zofran Inj) 4 mg NOW STAT IV 07/06/17 10:01 07/06/17 10:02 DC 07/06/17 10:24 4 MG Morphine Sulfate (MoRPHine SULFATE INJ) 2 mg STK-MED ONCE .ROUTE 07/06/17 11:45 07/06/17 11:46 DC 07/06/17 11:48 2 MG Morphine Sulfate (MoRPHine SULFATE INJ) 4 mg STK-MED ONCE .ROUTE 07/06/17 11:45 07/06/17 11:46 DC 07/06/17 11:49 4 MG ED Course ED COURSE: Vital signs were reviewed and showed hypertensive. The patients medical record was reviewed The above diagnostic studies were performed and reviewed. ED treatments and interventions as stated above. 0949: The patient was evaluated in room C12B. A complete history and physical examination was performed. 1001: Zofran 4 mg IV, NSS 2000 ml @ 999 mls/hr IV 1133: Morphine sulfate 6 mg IV 1231: I reassessed the patient at this time. He is feeling better after the morphine. 1311: I discussed the patient's case with LANDRY Beach with [facility]. She recommended a short course of steroids and follow-up in the office. 1315: Upon reevaluation, the patient is resting comfortably. I discussed the results and treatment plan with the patient. He does not want to take steroids. He expressed understanding and verbalized agreement. Based on the patients age, coexisting illnesses, exam and lab findings the decision to treat as an outpatient was made. The patient remained stable while under my care. The patient appeared well at the time of discharge. Medical Decision Differential diagnoses includes but is not limited to gastritis, peptic ulcer disease, GERD, gallbladder disease, pancreatitis, small bowel obstruction, acute coronary syndrome, pericarditis, ischemic bowel, irritable bowel disease, irritable bowel syndrome, appendicitis, diverticulitis, malignancy, hernia, urinary tract infection, torsion, perforation, trauma, infectious. Patient is a 47-year-old male who presents to the ER for vomiting 2 and diarrhea 2 since yesterday. He has a history of Crohn's and follows with [facility]. Patient has been taking his medications. CBC BMP, LFTs, bilirubin and lipase is unremarkable. There was negative. CT abdomen and pelvis shows mild inflammation around the ascending and transverse colon which I favor is secondary to Crohn's. I discussed with GI and they recommended steroid taper. I updated family/patient and bedside and they declined steroids due to reaction. Patient specifically better following fluids and morphine. He was discharged follow-up with GI and PCP. Discussed with Pt concerning signs and symptoms to watch out for. Pt was instructed to follow up with their PCP and discussed with the patient their option to return to the ED at anytime for persistent or worsening symptoms. The appropriate anticipatory guidance and out- patient management, including indications for return to the emergency department , were explained at length to the patient and understood. Medication Reconcilliation Current Medication List: was personally reviewed by me Blood Pressure Screening Patient's blood pressure: Elevated blood pressure Blood pressure disposition: Elevated BP felt to be situational Impression Primary Impression: Inflammatory bowel disease (Crohn's disease) Scribe Attestation The scribe's documentation has been prepared under my direction and personally reviewed by me in its entirety. I confirm that the note above accurately reflects all work, treatment, procedures, and medical decision making performed by me. Departure Information Dispostion Home / Self-Care Referrals Dennis Delgado III, M.D. (PCP) Rianna Magana CRNP Forms Call Back Authorization, HOME CARE DOCUMENTATION FORM, IMPORTANT VISIT INFORMATION Patient Instructions My [facility] Additional Instructions Please follow up with your primary care doctor or if you are a student, [facility] with in the next 24 hours. Any worsening of your symptoms, please return to the ED immediately. This includes any fevers greater than 100.4, worsening pain, chest pain, shortness breath, persistent nausea, vomiting, unable to eat or drink, or any other concerning signs or symptoms from your standpoint. You were given medications during this visit that will inhibit your ability to drive, operate machinery and work. Please do NOT drive, operate machinery, drink alcohol or work for the next 12hrs. Please follow up with GI within the next 24 hours as listed below. Problem Qualifiers Primary Impression: Inflammatory bowel disease (Crohn's disease) Gastrointestinal tract location: unspecified location Digestive disease complication type: without complication Qualified Codes: K50.90 - Crohn's disease, unspecified, without complications
== END 2017-07-06 13:40 | disposition home or self-care (01) ==
LOC: C.EDB 09:05 → C.EDC 13:40
DX: K50.90 Crohn's disease, unspecified, without complications (principal); I10 Essential (primary) hypertension; E03.9 Hypothyroidism, unspecified; F32.9 Major depressive disorder, single episode, unspecified; Z87.442 Personal history of urinary calculi; Z98.52 Vasectomy status; Z79.899 Other long term (current) drug therapy; Z87.891 Personal history of nicotine dependence